=== PATIENT | male | born 1985 | race Caucasian/White ===

== ENCOUNTER 2017-09-15 19:41 | Emergency (ER) | payer OTHER ==
[~2017-09-15] VITALS: Ht 170.2 cm; Wt 86.2 kg
== END 2017-09-15 22:56 | disposition home or self-care (01) ==
LOC: ER 19:41
DX: S01.02XA Laceration with foreign body of scalp, initial encounter (principal); S00.03XA Contusion of scalp, initial encounter; V86.69XA Passenger of other special all-terrain or other off-road motor vehicle injured in nontraffic accident, initial encounter; Y93.53 Activity, golf; Y92.39 Other specified sports and athletic area as the place of occurrence of the external cause; Y99.8 Other external cause status